=== PATIENT | female | born 1995 | race Hispanic/Latino ===

== ENCOUNTER 2017-06-17 03:10 | Emergency (ER) | payer OTHER ==
[2017-06-17] MEDS ORDERED: traMADol HCl 50 MG TAB ONE (03:27)
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
== END 2017-06-17 05:00 | disposition home or self-care (01) ==
LOC: ERS 03:10
DX: S06.0X9A Concussion with loss of consciousness of unspecified duration, initial encounter (principal); S23.41XA Sprain of ribs, initial encounter; Y04.2XXA Assault by strike against or bumped into by another person, initial encounter
CPT/HCPCS: 70450; 72125